=== PATIENT | male | born 1990 | race Two or more races ===

== ENCOUNTER 2017-08-19 15:07 | Emergency (ER) | payer OTHER ==
[~2017-08-19] VITALS: Ht 177.8 cm; Wt 93.0 kg
[2017-08-19 15:20] VITALS: BP 140/72
== END 2017-08-19 16:20 | disposition home or self-care (01) ==
LOC: ER 15:15
DX: J20.9 Acute bronchitis, unspecified (principal)
CPT/HCPCS: 71010

== ENCOUNTER 2017-11-15 14:48 | Emergency (ER) | payer SELFPAY ==
[~2017-11-15] VITALS: Ht 180.3 cm; Wt 88.5 kg
[2017-11-15 15:03] VITALS: BP 128/68
[2017-11-15] MEDS ORDERED: KETOROLAC TROMETH 60MG/2ML VIAL IM ONE (16:30)
== END 2017-11-15 16:43 | disposition home or self-care (01) ==
LOC: ER 14:51
DX: G44.209 Tension-type headache, unspecified, not intractable (principal)
CPT/HCPCS: 70450; 96372; 99284; J1885